=== PATIENT | male | born 1995 | race Two or more races ===

== ENCOUNTER 2019-09-25 20:15 | Emergency (ER) | payer SELFPAY ==
[~2019-09-25] VITALS: Ht 177.8 cm; Wt 81.0 kg
[2019-09-26] MEDS ORDERED: LORazepam 0.5 MG TABLET PO ONE (00:15)
[2019-09-26] MEDS ORDERED: LORA0.5T96 PO (00:16)
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
[2019-09-26 01:00] VITALS: BP 136/77
== END 2019-09-26 01:07 | disposition home or self-care (01) ==
LOC: ER 20:15
DX: F41.9 Anxiety disorder, unspecified (principal); F17.200 Nicotine dependence, unspecified, uncomplicated; R53.1 Weakness
CPT/HCPCS: 99283